=== PATIENT | male | born 1990 | race Caucasian/White ===

== ENCOUNTER 2020-09-14 08:24 | Day surgery (SDC) | payer OTHER, SELFPAY ==
--- NOTE | 2020-09-14 07:55 | PM.HP.1 ---
History of Present Illness History of Present Illness Date Patient Seen: 09/14/20 Chief complaint: DX COLONOSCOPY W/POSS BX Narrative: 30-year-old male seen at our office on 08/25/2020 for abdominal pain, constipation, diarrhea and episodic hematochezia. Please refer to that note for further details. There been no new significant changes to the H&P Exam Narrative Exam Narrative: General: Patient is well developed, not in apparent distress Cardiovascular: Regular rate and rhythm, no murmurs, rubs, or gallops; no evidence of edema; no palpable abdominal aortic aneurysm Gastrointestinal: Normoactive bowel sounds, soft, nontender, nondistended, no rebound tenderness, no hepatosplenomegaly, no evidence of hernia Assessment & Plan Assessment & Plan narrative: 30-year-old male with anal pain and hematochezia with constipation here for further evaluation Regarding the procedure(s), the risks and potential complications, benefits, and alternatives (including not doing the procedure) were discussed with the patient. The risks include but are not limited to bleeding, splenic injury, infection, perforation which may require surgical intervention, missed lesions, and adverse reactions to sedative medicines. After a question and answer period, the patient agreed to proceed with the procedure(s) and gives informed consent.
== END 2020-09-14 08:25 | disposition home or self-care (01) ==
PROVIDERS: PCP General Practice; Referring Provider General Practice; Visit Provider Internal Medicine Gastroenterology